=== PATIENT | male | born 1935 | race Caucasian/White ===

== ENCOUNTER 2018-03-21 13:40 | Inpatient (IN) | payer MEDICARE, BC ==
[2018-03-20 12:24] LABS: BASOPHILS # (AUTO) 0.1 X10'3 (0-0.2); BASOPHILS % (AUTO) 0.8 % (0-1); EOSINOPHILS # (AUTO) 0.2 X10'3 (0-0.9); EOSINOPHILS % (AUTO) 1.8 % (0-6); HEMATOCRIT 39.6 % (42.0-52.0); HEMOGLOBIN 13.6 g/dl (14.0-17.9); LYMPHOCYTES % (AUTO) 20.6 % (21-51); MEAN CORPUSCULAR HGB CONC 34.2 % (33.0-36.5); MEAN CORPUSCULAR VOLUME 96.5 FL (78-98); MEAN PLATELET VOLUME 7.4 FL (7.4-10.4); MONOCYTES # (AUTO) 0.7 X10'3 (0-0.9); MONOCYTES % (AUTO) 7.4 % (2-12); NEUTROPHILS # (AUTO) 6.8 X10'3 (1.8-7.7); NEUTROPHILS % (AUTO) 69.4 % (42-75); PLATELET COUNT 348 X10'3 (140-440); RED BLOOD COUNT 4.11 X10'6 (4.70-6.10); RED CELL DISTRIBUTION WIDTH 13.8 % (11.5-14.5); WHITE BLOOD COUNT 9.8 X10'3 (4.5-11.0)
[2018-03-20 12:35] LABS: PARTIAL THROMBOPLASTIN TIME 29 SECONDS (22-32); PROTHROMBIN TIME 10.6 SECONDS (9.0-12.0)
[2018-03-20 12:40] LABS: ALBUMIN 3.9 G/DL (3.4-5.0); ANION GAP 11 (8-16); BLOOD UREA NITROGEN 18 MG/DL (7-18); BUN/CREATININE RATIO 16.5 (5.4-32.0); CALCIUM 9.1 MG/DL (8.5-10.1); CHLORIDE 101 MMOL/L (99-107); CREATININE 1.09 MG/DL (0.60-1.10); GLUCOSE 89 MG/DL (70-104); POTASSIUM 4.1 MMOL/L (3.5-5.1); SODIUM 137 MMOL/L (135-145); TOTAL CARBON DIOXIDE 24.6 MMOL/L (24-32); eGFR 65 ML/MIN
[~2018-03-21] VITALS: Ht 167.6 cm; Wt 69.7 kg
[2018-03-21] VITALS (9 sets, daily range): BP systolic 130–158; BP diastolic 69–82
[2018-03-21] MEDS ORDERED: ATOR20TA PO (14:30)
[2018-03-21] MEDS ORDERED: CLOT15CR5 TOP (14:30)
[2018-03-21] MEDS ORDERED: SILD100T PO (14:30)
[2018-03-21] MEDS ORDERED: PARO10TA85 PO (14:30)
[2018-03-21] MEDS ORDERED: ASPI81TA47 PO (14:30)
[2018-03-21] MEDS ORDERED: NYSTATIN TOP (14:30)
[2018-03-21] MEDS ORDERED: TRIA1CAP2 PO (14:30)
[2018-03-21] MEDS ORDERED: FLO0.4C PO (14:30)
[2018-03-21] MEDS ORDERED: OMEP20TA23 PO (14:30)
[2018-03-21] MEDS ORDERED: LIDOcaine/PRILOcaine 5gm cream TP ONE (14:40)
[2018-03-21] MEDS ORDERED: diphenhydrAMINE 25mg capsule PO PRN (14:40)
[2018-03-21] MEDS ORDERED: LORazepam 0.5 MG tablet PO PRN (14:40)
[2018-03-21] MEDS: normal saline 1000ml 1,000 ML IV SCH (14:55)
[2018-03-21] MEDS ORDERED: iohexol 350MG/ML 100ml bottle IV ONE (17:34)
[2018-03-21] MEDS ORDERED: fentaNYL/PF 50MCG/1 ML 2ML syringe ONE (17:34)
[2018-03-21] MEDS ORDERED: LIDOcaine 1% w/EPI 1:100,000 30ml vial (MDV) ONE (17:34)
[2018-03-21] MEDS ORDERED: heparin 1,000 UNITS/NS 500ml 500 ML ONE ×2 (17:34→17:35)
[2018-03-21] MEDS ORDERED: nitroGLYCERIN-Tridil 50MG/D5W 250 ML IV ONE (17:34)
[2018-03-21] MEDS ORDERED: verapamil 2.5 mg/ml inj IV ONE (17:34)
[2018-03-21] MEDS ORDERED: midazolam 2 mg/2 ml injection ONE (17:34)
[2018-03-21] MEDS ORDERED: heparin 1,000unit/ml 10ml vial 10 ML ONE (17:35)
[2018-03-21] MEDS ORDERED: proCHLORperazine 10 MG/2 ml inj IV PRN (19:50)
[2018-03-21] MEDS ORDERED: ondansetron/PF 4mg/2ml inj IV PRN (19:50)
[2018-03-21] MEDS ORDERED: OXAZEpam 15mg capsule PO PRN (19:50)
[2018-03-21] MEDS: clotrimazole topical cream 15gm tube TP SCH (20:00)
[2018-03-21] MEDS: NYSTATIN CREAM - 30GM TUBE TP SCH (20:00)
[2018-03-21] MEDS: tamsulosin 0.4mg capsule PO SCH (20:28)
[2018-03-22] MEDS: normal saline 1000ml 1,000 ML IV SCH ×2 (00:40→03:28)
[2018-03-22 06:00] VITALS: BP 158/89
[2018-03-22] MEDS ORDERED: insulin regular, human inj. 100 UNITS in normal saline 100ml IV soln 100 ML IV SCH ×2 (07:10)
[2018-03-22] MEDS ORDERED: Cefazolin 2GM/100ML NS IVPB 100 ML IV ONE (07:10)
[2018-03-22] MEDS ORDERED: dextrose 50%-water 50ml dispensing syringe IV PRN (07:10)
[2018-03-22] MEDS ORDERED: MESSAGE TO NURSING PO ONE ×5 (07:10→10:00)
[2018-03-22] MEDS ORDERED: vancomycin/NS 1 GM ADD-VANTAGE 250 ML IV ONE (07:10)
[2018-03-22] MEDS: pantoprazole 40mg Tablet.DR PO SCH (07:19)
[2018-03-22] MEDS: atorvastatin 20mg tablet PO SCH (07:19)
[2018-03-22] MEDS: PARoxetine 10mg tablet PO SCH (07:20)
[2018-03-22] MEDS: triamterene/HCTZ 37.5/25mg tablet PO SCH (07:20)
[2018-03-22] MEDS: aspirin 81mg tablet.DR PO SCH (07:33)
[2018-03-22] MEDS: clotrimazole topical cream 15gm tube TP SCH ×2 (08:00→20:00)
[2018-03-22] MEDS: NYSTATIN CREAM - 30GM TUBE TP SCH ×2 (08:00→20:00)
[2018-03-22 08:04] LABS: BASOPHILS % (AUTO) 0.3 % (0-1); EOSINOPHILS # (AUTO) 0.3 X10'3 (0-0.9); EOSINOPHILS % (AUTO) 4.5 % (0-6); HEMATOCRIT 37.9 % (42.0-52.0); HEMOGLOBIN 12.6 g/dl (14.0-17.9); LYMPHOCYTES # (AUTO) 1.5 X10'3 (1.1-4.8); LYMPHOCYTES % (AUTO) 22.5 % (21-51); MEAN CORPUSCULAR HEMOGLOBIN 32.2 PG (27.0-31.0); MEAN CORPUSCULAR HGB CONC 33.2 % (33.0-36.5); MEAN PLATELET VOLUME 7.6 FL (7.4-10.4); MONOCYTES # (AUTO) 0.6 X10'3 (0-0.9); MONOCYTES % (AUTO) 8.9 % (2-12); NEUTROPHILS # (AUTO) 4.1 X10'3 (1.8-7.7); NEUTROPHILS % (AUTO) 63.8 % (42-75); PLATELET COUNT 319 X10'3 (140-440); RED BLOOD COUNT 3.91 X10'6 (4.70-6.10); RED CELL DISTRIBUTION WIDTH 13.8 % (11.5-14.5); WHITE BLOOD COUNT 6.5 X10'3 (4.5-11.0)
[2018-03-22 08:11] LABS: HEMOGLOBIN A1C 5.3 % (4.5-6.2)
[2018-03-22 08:15] LABS: PARTIAL THROMBOPLASTIN TIME 29 SECONDS (22-32); PROTHROMBIN TIME 10.7 SECONDS (9.0-12.0)
[2018-03-22 08:16] LABS: ALBUMIN 3.3 G/DL (3.4-5.0); ANION GAP 8 (8-16); BLOOD UREA NITROGEN 13 MG/DL (7-18); CALCIUM 8.5 MG/DL (8.5-10.1); CHLORIDE 105 MMOL/L (99-107); GLUCOSE 96 MG/DL (70-104); SODIUM 140 MMOL/L (135-145); TOTAL CARBON DIOXIDE 27.1 MMOL/L (24-32); eGFR 72 ML/MIN
[2018-03-22] MEDS ORDERED: insulin Lispro (HumaLOG) vial - multi-dose SQ SCH (09:00)
[2018-03-22 10:47] LABS: CLARITY,URINE CLEAR (Clear); COLOR,URINE YELLOW (Yellow); GLUCOSE, URINE NEGATIVE (Neg); KETONES,URINE NEGATIVE (Neg); LEUKOCYTE ESTERASE ,URINE NEGATIVE (Neg); NITRITES, URINE NEGATIVE (Neg); OCCULT BLOOD,URINE NEGATIVE (Neg); PROTEIN,URINE NEGATIVE (Neg); UROBILINOGEN,URINE 0.2 E.U/dL (0.2-1.0)
[2018-03-22 10:48] LABS: UA COLLECTION TYPE VOIDED
[2018-03-22 11:00] VITALS: BP 131/65
[2018-03-22 13:00] VITALS: BP 132/71
[2018-03-22 15:40] LABS: ABG BASE EXCESS -1.5 mmol/L (-2.0-3.0); ABG OXYGEN SATURATION 96.6 % (95-98); ABG PCO2 (T) 29.5 mmHg (35.0-48.0); ABG PH (T) 7.471 (7.350-7.450); ABG PO2 (T) 86.6 mmHg (83-108); ALLEN'S TEST Positive; FMetHb 0.2 % (0.3-1.12); FO2Hb 96.4 % (94-100); TOTAL HEMOGLOBIN 13.1 G/dl (14.0-18.0)
[2018-03-22] MEDS ORDERED: ringers solution, lacted 1,000 ML IV ONE (15:49)
[2018-03-22 19:00] VITALS: BP 134/69
[2018-03-22] MEDS: mupirocin 2% ointment 22GM NS SCH (20:00)
[2018-03-22] MEDS: tamsulosin 0.4mg capsule PO SCH (20:51)
[2018-03-22 23:00] VITALS: BP 116/65
[2018-03-23] VITALS (14 sets, daily range): BP systolic 110–166; BP diastolic 58–86
[2018-03-23] MEDS ORDERED: vancomycin/NS 1 GM ADD-VANTAGE 250 ML IV ONE (05:30)
[2018-03-23] MEDS ORDERED: ceFAZolin inj. 2,000 MG in dextrose 5%-water 100 ML IV ONE (05:30)
[2018-03-23 05:40] LABS: PROTHROMBIN TIME 10.7 SECONDS (9.0-12.0)
[2018-03-23 05:58] LABS: BASOPHILS % (AUTO) 0.3 % (0-1); EOSINOPHILS # (AUTO) 0.4 X10'3 (0-0.9); EOSINOPHILS % (AUTO) 5.1 % (0-6); HEMATOCRIT 36.9 % (42.0-52.0); HEMOGLOBIN 12.3 g/dl (14.0-17.9); LYMPHOCYTES # (AUTO) 1.8 X10'3 (1.1-4.8); LYMPHOCYTES % (AUTO) 25.6 % (21-51); MEAN CORPUSCULAR HEMOGLOBIN 32.5 PG (27.0-31.0); MEAN CORPUSCULAR HGB CONC 33.2 % (33.0-36.5); MEAN CORPUSCULAR VOLUME 97.8 FL (78-98); MONOCYTES # (AUTO) 0.7 X10'3 (0-0.9); MONOCYTES % (AUTO) 9.7 % (2-12); NEUTROPHILS # (AUTO) 4.2 X10'3 (1.8-7.7); NEUTROPHILS % (AUTO) 59.3 % (42-75); PLATELET COUNT 293 X10'3 (140-440); RED BLOOD COUNT 3.78 X10'6 (4.70-6.10); RED CELL DISTRIBUTION WIDTH 12.6 % (11.5-14.5); WHITE BLOOD COUNT 7.1 X10'3 (4.5-11.0)
[2018-03-23] MEDS ORDERED: famotidine 20mg tablet PO ONE ×2 (06:00→08:00)
[2018-03-23] MEDS ORDERED: LORazepam 2 mg/ml vial IV ONE (06:00)
[2018-03-23 06:06] LABS: ALBUMIN 3.2 G/DL (3.4-5.0); ANION GAP 9 (8-16); BLOOD UREA NITROGEN 13 MG/DL (7-18); BUN/CREATININE RATIO 12.6 (5.4-32.0); CALCIUM 9.3 MG/DL (8.5-10.1); CHLORIDE 104 MMOL/L (99-107); CREATININE 1.03 MG/DL (0.60-1.10); GLUCOSE 106 MG/DL (70-104); MAGNESIUM 1.8 MG/DL (1.5-2.4); SODIUM 138 MMOL/L (135-145); TOTAL CARBON DIOXIDE 25.2 MMOL/L (24-32); eGFR 69 ML/MIN
[2018-03-23] MEDS: pantoprazole 40mg Tablet.DR PO SCH (07:30)
[2018-03-23] MEDS ORDERED: sodium bicarbonate 1 MEQ/1 ml inj ONE (08:00)
[2018-03-23] MEDS ORDERED: methylPREDNISolone sod. succ. 500mg inj ONE (08:00)
[2018-03-23] MEDS ORDERED: heparin 10,000 units/1 ML INJ ONE (08:00)
[2018-03-23] MEDS ORDERED: albumin (human) 25% 100 ML IV solution IV ONE (08:00)
[2018-03-23] MEDS: triamterene/HCTZ 37.5/25mg tablet PO SCH (08:00)
[2018-03-23] MEDS ORDERED: heparin 1,000 units/ml 10ml inj ONE (08:00)
[2018-03-23] MEDS: atorvastatin 20mg tablet PO SCH (08:00)
[2018-03-23] MEDS: clotrimazole topical cream 15gm tube TP SCH ×2 (08:00→20:27)
[2018-03-23] MEDS ORDERED: potassium Cl 2 mEq/ml inj IV ONE (08:00)
[2018-03-23] MEDS ORDERED: calcium chloride 100 MG/1 ML inj IV ONE (08:00)
[2018-03-23] MEDS: NYSTATIN CREAM - 30GM TUBE TP SCH ×2 (08:00→20:00)
[2018-03-23] MEDS ORDERED: aminocaproic acid 250 MG/1 ML inj. ONE (08:00)
[2018-03-23] MEDS: mupirocin 2% ointment 22GM NS SCH ×3 (08:00→20:00)
[2018-03-23] MEDS ORDERED: LIDOcaine 2% (20 mg/ml) 5ml cardiac syringe ONE (08:00)
[2018-03-23] MEDS ORDERED: magnesium sulf 1 GM/2 ML ONE (08:00)
[2018-03-23] MEDS ORDERED: phenylephrine 10mg/ml inj. IV ONE (08:00)
[2018-03-23] MEDS: PARoxetine 10mg tablet PO SCH (08:26)
[2018-03-23] MEDS: aspirin 81mg tablet.DR PO SCH (08:26)
[2018-03-23] MEDS ORDERED: papaverine 30 mg/ml 2ml inj. ONE (09:00)
[2018-03-23] MEDS ORDERED: SUFENTANIL CITRATE 50 MCG/ML 2ml ampule IV ONE (11:17)
[2018-03-23] MEDS ORDERED: MIDAZolam 1mg/ml 10ml vial ONE (11:17)
[2018-03-23] MEDS ORDERED: LIDOcaine 2% (20mg/ml) 5ml vial ONE (11:20)
[2018-03-23] MEDS ORDERED: propofol inj 20 ML IV ONE (11:20)
[2018-03-23] MEDS ORDERED: 0.9 % SODIUM CHLORIDE 10 ML VIAL ONE ×2 (11:20→11:22)
[2018-03-23] MEDS ORDERED: DOPamine/D5W 400mg/250ml bag IV ONE (11:21)
[2018-03-23] MEDS ORDERED: isoflurane 100ml inhalation liquid IH ONE (11:21)
[2018-03-23] MEDS ORDERED: LIDOcaine 2% 5ml jelly ONE (11:22)
[2018-03-23 12:40] LABS: ABG BASE EXCESS 0.1 mmol/L (-2.0-3.0); ABG HCO3 21.9 mmol/L (22.0-26.0); ABG OXYGEN SATURATION 99.4 % (95-98); ABG PCO2 27.4 mmHg (35.0-45.0); ABG PH 7.521 (7.350-7.450); ABG PO2 531.6 mmHg (60.0-100.0); CL (ABG) 104 mmol/L (99-107); FCOHb 0.3 % (0.5-1.5); FMetHb 0.5 % (0.3-1.12); FO2Hb 98.6 % (94-100); GLUCOSE (ABG) 123 mg/dl (70-105); IONIZED CA (ABG) 1.13 mmol/L (1.03-1.32); K (ABG) 3.8 mmol/L (3.3-5.1); NA (ABG) 129 mmol/L (135-145); TOTAL HEMOGLOBIN 11.8 G/dl (14.0-18.0)
[2018-03-23] MEDS ORDERED: papaverine 30 mg/ml 2ml inj. IA ONE (12:51)
[2018-03-23] MEDS ORDERED: heparin 10,000 units/1 ML INJ IR ONE (12:52)
[2018-03-23 13:21] LABS: ABG BASE EXCESS -2.6 mmol/L (-2.0-3.0); ABG HCO3 21.2 mmol/L (22.0-26.0); ABG OXYGEN SATURATION 99.6 % (95-98); ABG PCO2 33.9 mmHg (35.0-45.0); ABG PH 7.415 (7.350-7.450); ABG PO2 493.9 mmHg (60.0-100.0); CL (ABG) 104 mmol/L (99-107); FMetHb 0.4 % (0.3-1.12); FO2Hb 99.2 % (94-100); GLUCOSE (ABG) 137 mg/dl (70-105); IONIZED CA (ABG) 1.16 mmol/L (1.03-1.32); K (ABG) 3.8 mmol/L (3.3-5.1); NA (ABG) 132 mmol/L (135-145); TOTAL HEMOGLOBIN 12.1 G/dl (14.0-18.0)
[2018-03-23] MEDS ORDERED: fentaNYL/PF 50MCG/1 ML 2ML syringe IV PRN (13:40)
[2018-03-23] MEDS ORDERED: midazolam 2 mg/2 ml injection IV PRN (13:40)
[2018-03-23 13:50] LABS: ABG BASE EXCESS 0.4 mmol/L (-2.0-3.0); ABG HCO3 23.4 mmol/L (22.0-26.0); ABG OXYGEN SATURATION 99.3 % (95-98); ABG PCO2 31.6 mmHg (35.0-45.0); ABG PH 7.488 (7.350-7.450); ABG PO2 575.3 mmHg (60.0-100.0); CL (ABG) 102 mmol/L (99-107); FCOHb 0.3 % (0.5-1.5); FMetHb 0.3 % (0.3-1.12); FO2Hb 98.7 % (94-100); GLUCOSE (ABG) 122 mg/dl (70-105); IONIZED CA (ABG) 1.03 mmol/L (1.03-1.32); K (ABG) 4.7 mmol/L (3.3-5.1); NA (ABG) 130 mmol/L (135-145); TOTAL HEMOGLOBIN 9.4 G/dl (14.0-18.0)
[2018-03-23 14:05] LABS: ABG BASE EXCESS VENOUS -0.4 mmol/L; ABG HCO3 VENOUS 23.9 mmol/L; ABG PO2 VENOUS 48.3 mmHg; CL (ABG) 102 mmol/L (99-107); FCOHb VENOUS 0.3 %; FHHb VENOUS 16.9 %; FMetHb VENOUS 0.4 %; FO2Hb VENOUS 82.4 %; GLUCOSE (ABG) 119 mg/dl (70-105); IONIZED CA (ABG) 1.06 mmol/L (1.03-1.32); K (ABG) 4.6 mmol/L (3.3-5.1); NA (ABG) 131 mmol/L (135-145); TOTAL HEMOGLOBIN 9.7 G/dl (14.0-18.0)
[2018-03-23 14:46] LABS: ABG HCO3 23.4 mmol/L (22.0-26.0); ABG OXYGEN SATURATION 99.1 % (95-98); ABG PCO2 37.6 mmHg (35.0-45.0); ABG PH 7.412 (7.350-7.450); ABG PO2 313.6 mmHg (60.0-100.0); CL (ABG) 104 mmol/L (99-107); FCOHb 0.3 % (0.5-1.5); FMetHb 0.4 % (0.3-1.12); FO2Hb 98.4 % (94-100); GLUCOSE (ABG) 120 mg/dl (70-105); K (ABG) 4.9 mmol/L (3.3-5.1); NA (ABG) 131 mmol/L (135-145); TOTAL HEMOGLOBIN 9.7 G/dl (14.0-18.0)
[2018-03-23 15:06] LABS: ABG BASE EXCESS 2.5 mmol/L (-2.0-3.0); ABG HCO3 26.6 mmol/L (22.0-26.0); ABG PCO2 39.4 mmHg (35.0-45.0); ABG PH 7.448 (7.350-7.450); ABG PO2 303.6 mmHg (60.0-100.0); CL (ABG) 105 mmol/L (99-107); FCOHb 0.3 % (0.5-1.5); FMetHb 0.6 % (0.3-1.12); FO2Hb 98.1 % (94-100); GLUCOSE (ABG) 127 mg/dl (70-105); K (ABG) 4.3 mmol/L (3.3-5.1); NA (ABG) 132 mmol/L (135-145); TOTAL HEMOGLOBIN 8.7 G/dl (14.0-18.0)
[2018-03-23 15:41] LABS: ABG BASE EXCESS 0.6 mmol/L (-2.0-3.0); ABG HCO3 25.3 mmol/L (22.0-26.0); ABG PCO2 40.9 mmHg (35.0-45.0); ABG PH 7.409 (7.350-7.450); ABG PO2 357.2 mmHg (60.0-100.0); CL (ABG) 106 mmol/L (99-107); FCOHb 0.3 % (0.5-1.5); FMetHb 0.5 % (0.3-1.12); FO2Hb 98.2 % (94-100); GLUCOSE (ABG) 137 mg/dl (70-105); IONIZED CA (ABG) 1.27 mmol/L (1.03-1.32); NA (ABG) 133 mmol/L (135-145); TOTAL HEMOGLOBIN 9.2 G/dl (14.0-18.0)
[2018-03-23] MEDS ORDERED: rocuronium 10mg/ml inj IV ONE ×3 (16:05→16:32)
[2018-03-23] MEDS ORDERED: nitroGLYCERIN-Tridil 50MG/D5W 250 ML IV PRN (16:26)
[2018-03-23] MEDS ORDERED: DOPamine 400mg/D5W 250ml 250 ML IV PRN (16:26)
[2018-03-23] MEDS ORDERED: niCARDipine/sod cl 20mg/200ml 200 ML IV PRN (16:26)
[2018-03-23] MEDS ORDERED: metoclopramide 5 mg/ml inj IV PRN (16:30)
[2018-03-23] MEDS ORDERED: morphine 4 MG/ML inj SYRINge IV PRN (16:30)
[2018-03-23] MEDS ORDERED: sodium phosphate inj. 15 MMOL in dextrose 5%-water 150 ML IV PRN (16:30)
[2018-03-23] MEDS ORDERED: magnesium 4gm in 100ml NS 100 ML IV PRN (16:30)
[2018-03-23] MEDS ORDERED: sodium phosphate inj. 30 MMOL in dextrose 5%-water 250 ML IV PRN (16:30)
[2018-03-23] MEDS ORDERED: Neutra Phos packet PO PRN (16:30)
[2018-03-23] MEDS ORDERED: magnesium hydroxide 30ml (MOM) UD suspension PO PRN (16:30)
[2018-03-23] MEDS ORDERED: albumin (Human) 5% 250ml 250 ML IV PRN (16:30)
[2018-03-23] MEDS ORDERED: potassium Cl 20mEq/100mL bag 100 ML IV PRN ×3 (16:30)
[2018-03-23] MEDS: insulin regular, human inj. 100 UNITS in normal saline 100ml IV soln 100 ML IV SCH ×4 (16:30→19:15)
[2018-03-23] MEDS ORDERED: dextrose 50%-water 50ml dispensing syringe IV PRN (16:30)
[2018-03-23] MEDS ORDERED: acetaminophen 325mg tablet PO PRN (16:30)
[2018-03-23] MEDS ORDERED: normal saline 250ml IV soln 250 ML IV PRN (16:30)
[2018-03-23 17:00] LABS: ABG BASE EXCESS -1.4 mmol/L (-2.0-3.0); ABG HCO3 24.7 mmol/L (22.0-26.0); ABG OXYGEN SATURATION 98.5 % (95-98); ABG PCO2 (T) 46.8 mmHg (35.0-48.0); ABG PH (T) 7.339 (7.350-7.450); ABG PO2 (T) 159.6 mmHg (83-108); FCOHb 0.3 % (0.5-1.5); FMetHb 0.1 % (0.3-1.12); FO2Hb 98.1 % (94-100); PATIENT TEMPERATURE 36.8; PEEP 5 cm H2O; RESPIRATORY RATE 12 b/min; TIDAL VOLUME 500 mL; TOTAL HEMOGLOBIN 11.5 G/dl (14.0-18.0)
[2018-03-23 17:35] LABS: BASOPHILS % (AUTO) 0 % (0-1); EOSINOPHILS # (AUTO) 0.3 X10'3 (0-0.9); EOSINOPHILS % (AUTO) 1.7 % (0-6); HEMATOCRIT 30.7 % (42.0-52.0); HEMOGLOBIN 10.6 g/dl (14.0-17.9); LYMPHOCYTES # (AUTO) 0.9 X10'3 (1.1-4.8); LYMPHOCYTES % (AUTO) 5.8 % (21-51); MEAN CORPUSCULAR HEMOGLOBIN 33.1 PG (27.0-31.0); MEAN CORPUSCULAR HGB CONC 34.5 % (33.0-36.5); MEAN CORPUSCULAR VOLUME 96.1 FL (78-98); MEAN PLATELET VOLUME 7.4 FL (7.4-10.4); MONOCYTES # (AUTO) 0.5 X10'3 (0-0.9); MONOCYTES % (AUTO) 3.2 % (2-12); NEUTROPHILS # (AUTO) 13.8 X10'3 (1.8-7.7); NEUTROPHILS % (AUTO) 89.3 % (42-75); PLATELET COUNT 188 X10'3 (140-440); RED CELL DISTRIBUTION WIDTH 13.4 % (11.5-14.5); WHITE BLOOD COUNT 15.4 X10'3 (4.5-11.0)
[2018-03-23] MEDS: insulin Lispro (HumaLOG) vial - multi-dose SQ SCH (17:36)
[2018-03-23] MEDS: sodium chloride 0.45% 1,000 ML IV SCH (17:36)
[2018-03-23 17:46] LABS: INR 1.2 INR; PARTIAL THROMBOPLASTIN TIME 28 SECONDS (22-32); PROTHROMBIN TIME 11.9 SECONDS (9.0-12.0)
[2018-03-23 17:51] LABS: ALANINE AMINOTRANSFERASE 21 U/L (12-78); ALBUMIN 2.9 G/DL (3.4-5.0); ALBUMIN/GLOBULIN RATIO 1.3 (1.1-1.5); ALKALINE PHOSPHATASE 40 IU/L (46-116); ANION GAP 8 (8-16); BILIRUBIN,TOTAL 0.5 MG/DL (0.1-1.0); BLOOD UREA NITROGEN 11 MG/DL (7-18); BUN/CREATININE RATIO 13.3 (5.4-32.0); CALCIUM 8.4 MG/DL (8.5-10.1); CHLORIDE 106 MMOL/L (99-107); CREATININE 0.83 MG/DL (0.60-1.10); GLUCOSE 162 MG/DL (70-104); MAGNESIUM 3.1 MG/DL (1.5-2.4); SODIUM 140 MMOL/L (135-145); TOTAL CARBON DIOXIDE 26.4 MMOL/L (24-32); TOTAL PROTEIN 5.2 G/DL (6.4-8.2); eGFR 89 ML/MIN
[2018-03-23 17:52] LABS: ASPARTATE AMINO TRANSFERASE 58 U/L (10-37)
[2018-03-23] MEDS: morphine 4 MG/ML inj SYRINge IV PRN ×4 (18:31→23:53)
[2018-03-23] MEDS: docusate sod 100mg capsule PO SCH (20:00)
[2018-03-23] MEDS: vancomycin/NS 1 GM ADD-VANTAGE 250 ML IV SCH (20:25)
[2018-03-23] MEDS: mupirocin 2% nasal ointment 1gm UD NS SCH (20:25)
[2018-03-23] MEDS: tamsulosin 0.4mg capsule PO SCH (20:27)
[2018-03-23 21:45] LABS: ABG BASE EXCESS -3.4 mmol/L (-2.0-3.0); ABG HCO3 21.3 mmol/L (22.0-26.0); ABG PCO2 (T) 37.2 mmHg (35.0-48.0); ABG PH (T) 7.376 (7.350-7.450); ABG PO2 (T) 65.5 mmHg (83-108); FCOHb 0.3 % (0.5-1.5); FMetHb 0.1 % (0.3-1.12); FO2Hb 91.6 % (94-100); MINUTE VOLUME 9 L/min; PATIENT TEMPERATURE 36.8; PEEP 5 cm H2O; RESPIRATORY RATE 0 b/min; RESPIRATORY RATE (OBSERVED) 16 b/min; TIDAL VOLUME 735 mL; TOTAL HEMOGLOBIN 11.6 G/dl (14.0-18.0)
[2018-03-23] MEDS: ceFAZolin 1GM/D5W- ADD-VANTAGE 50 ML IV SCH (23:52)
[2018-03-24] VITALS (24 sets, daily range): BP systolic 98–152; BP diastolic 49–75
[2018-03-24] MEDS: HYDROcodone/acetaminophen 10/325mg tab PO PRN ×3 (00:50→17:20)
[2018-03-24 03:22] LABS: BASOPHILS # (AUTO) 0.2 X10'3 (0-0.2); BASOPHILS % (AUTO) 1.4 % (0-1); EOSINOPHILS % (AUTO) 0 % (0-6); HEMATOCRIT 29.7 % (42.0-52.0); LYMPHOCYTES # (AUTO) 0.4 X10'3 (1.1-4.8); LYMPHOCYTES % (AUTO) 2.9 % (21-51); MEAN CORPUSCULAR HEMOGLOBIN 32.8 PG (27.0-31.0); MEAN CORPUSCULAR HGB CONC 33.8 % (33.0-36.5); MEAN CORPUSCULAR VOLUME 96.9 FL (78-98); MEAN PLATELET VOLUME 7.6 FL (7.4-10.4); MONOCYTES # (AUTO) 0.7 X10'3 (0-0.9); MONOCYTES % (AUTO) 5.2 % (2-12); NEUTROPHILS # (AUTO) 12.1 X10'3 (1.8-7.7); NEUTROPHILS % (AUTO) 90.5 % (42-75); PLATELET COUNT 170 X10'3 (140-440); RED BLOOD COUNT 3.06 X10'6 (4.70-6.10); RED CELL DISTRIBUTION WIDTH 13.6 % (11.5-14.5); WHITE BLOOD COUNT 13.4 X10'3 (4.5-11.0)
[2018-03-24 04:01] LABS: PARTIAL THROMBOPLASTIN TIME 28 SECONDS (22-32); PROTHROMBIN TIME 10.7 SECONDS (9.0-12.0)
[2018-03-24 04:04] LABS: ALANINE AMINOTRANSFERASE 23 U/L (12-78); ALBUMIN 3.3 G/DL (3.4-5.0); ALBUMIN/GLOBULIN RATIO 1.4 (1.1-1.5); ALKALINE PHOSPHATASE 36 IU/L (46-116); ANION GAP 9 (8-16); ASPARTATE AMINO TRANSFERASE 60 U/L (10-37); BILIRUBIN,TOTAL 0.4 MG/DL (0.1-1.0); BLOOD UREA NITROGEN 14 MG/DL (7-18); BUN/CREATININE RATIO 12.4 (5.4-32.0); CALCIUM 8.5 MG/DL (8.5-10.1); CHLORIDE 107 MMOL/L (99-107); CREATININE 1.13 MG/DL (0.60-1.10); GLUCOSE 86 MG/DL (70-104); MAGNESIUM 2.7 MG/DL (1.5-2.4); PHOSPHORUS 2.3 MG/DL (2.3-4.5); POTASSIUM 4.6 MMOL/L (3.5-5.1); SODIUM 142 MMOL/L (135-145); TOTAL CARBON DIOXIDE 26.1 MMOL/L (24-32); TOTAL PROTEIN 5.7 G/DL (6.4-8.2); eGFR 62 ML/MIN
[2018-03-24] MEDS: ondansetron/PF 4mg/2ml inj IV PRN ×2 (04:10→10:03)
[2018-03-24] MEDS ORDERED: atorvastatin 10mg tablet PO SCH (08:00)
[2018-03-24] MEDS ORDERED: aspirin 325mg tablet, delayed-release (Ecotrin) PO SCH (08:00)
[2018-03-24] MEDS ORDERED: metoprolol tartrate 12.5mg (1/2 tablet) PO SCH (08:00)
[2018-03-24] MEDS ORDERED: clopidogrel 300mg tablet PO ONE (08:10)
[2018-03-24] MEDS ORDERED: ketorolac tromethamine 15mg/ml inj. IV ONE (08:30)
[2018-03-24] MEDS: clotrimazole topical cream 15gm tube TP SCH ×2 (09:14→19:58)
[2018-03-24] MEDS: NYSTATIN CREAM - 30GM TUBE TP SCH ×2 (09:14→19:57)
[2018-03-24] MEDS: PARoxetine 10mg tablet PO SCH (09:16)
[2018-03-24] MEDS: vancomycin/NS 1 GM ADD-VANTAGE 250 ML IV SCH ×2 (09:16→19:56)
[2018-03-24] MEDS: ceFAZolin 1GM/D5W- ADD-VANTAGE 50 ML IV SCH ×2 (09:16→16:14)
[2018-03-24] MEDS: docusate sod 100mg capsule PO SCH ×2 (09:17→19:57)
[2018-03-24] MEDS: pantoprazole 40mg Tablet.DR PO SCH (09:17)
[2018-03-24] MEDS: insulin Lispro (HumaLOG) vial - multi-dose SQ SCH ×3 (09:26→16:12)
[2018-03-24] MEDS: mupirocin 2% nasal ointment 1gm UD NS SCH ×2 (10:03→19:56)
[2018-03-24] MEDS: ketorolac tromethamine 15mg/ml inj. IV SCH ×2 (13:59→19:56)
[2018-03-24] MEDS ORDERED: mineral oil/petrolatum ophthal oint EACHEYE SCH (14:00)
[2018-03-24] MEDS: lactobacillus rhamnosus 10,000 MMU CELLS/CAPSULE PO SCH (19:56)
[2018-03-24] MEDS: metoprolol tartrate 25mg tablet PO SCH (19:57)
[2018-03-24] MEDS: tamsulosin 0.4mg capsule PO SCH (20:08)
[2018-03-25] VITALS (24 sets, daily range): BP systolic 107–158; BP diastolic 63–91
[2018-03-25] MEDS: ceFAZolin 1GM/D5W- ADD-VANTAGE 50 ML IV SCH ×2 (00:02→08:14)
[2018-03-25] MEDS: ketorolac tromethamine 15mg/ml inj. IV SCH ×3 (01:31→14:48)
[2018-03-25 04:19] LABS: ALBUMIN 2.9 G/DL (3.4-5.0); ANION GAP 5 (8-16); BLOOD UREA NITROGEN 22 MG/DL (7-18); CHLORIDE 102 MMOL/L (99-107); CREATININE 1.16 MG/DL (0.60-1.10); GLUCOSE 138 MG/DL (70-104); MAGNESIUM 2.5 MG/DL (1.5-2.4); PHOSPHORUS 4.1 MG/DL (2.3-4.5); POTASSIUM 5.6 MMOL/L (3.5-5.1); SODIUM 133 MMOL/L (135-145); TOTAL CARBON DIOXIDE 26.5 MMOL/L (24-32); eGFR 60 ML/MIN
[2018-03-25 04:22] LABS: BASOPHILS % (AUTO) 0 % (0-1); EOSINOPHILS % (AUTO) 0 % (0-6); HEMATOCRIT 26.4 % (42.0-52.0); HEMOGLOBIN 8.9 g/dl (14.0-17.9); LYMPHOCYTES # (AUTO) 0.8 X10'3 (1.1-4.8); LYMPHOCYTES % (AUTO) 4.3 % (21-51); MEAN CORPUSCULAR HEMOGLOBIN 32.9 PG (27.0-31.0); MEAN CORPUSCULAR HGB CONC 33.8 % (33.0-36.5); MEAN CORPUSCULAR VOLUME 97.4 FL (78-98); MONOCYTES % (AUTO) 5.6 % (2-12); NEUTROPHILS # (AUTO) 16.7 X10'3 (1.8-7.7); NEUTROPHILS % (AUTO) 90.1 % (42-75); PLATELET COUNT 143 X10'3 (140-440); RED BLOOD COUNT 2.71 X10'6 (4.70-6.10); RED CELL DISTRIBUTION WIDTH 14.2 % (11.5-14.5); WHITE BLOOD COUNT 18.6 X10'3 (4.5-11.0)
[2018-03-25] MEDS: clotrimazole topical cream 15gm tube TP SCH ×2 (08:00→19:18)
[2018-03-25] MEDS: NYSTATIN CREAM - 30GM TUBE TP SCH ×2 (08:00→19:18)
[2018-03-25] MEDS: pantoprazole 40mg Tablet.DR PO SCH (08:13)
[2018-03-25] MEDS: aspirin 81mg tab.chew PO SCH (08:13)
[2018-03-25] MEDS: docusate sod 100mg capsule PO SCH ×2 (08:13→19:17)
[2018-03-25] MEDS: PARoxetine 10mg tablet PO SCH (08:13)
[2018-03-25] MEDS: clopidogrel 75mg tablet PO SCH (08:13)
[2018-03-25] MEDS: lactobacillus rhamnosus 10,000 MMU CELLS/CAPSULE PO SCH ×2 (08:13→19:17)
[2018-03-25] MEDS: atorvastatin 10mg tablet PO SCH (08:13)
[2018-03-25] MEDS: metoprolol tartrate 25mg tablet PO SCH ×2 (08:18→19:17)
[2018-03-25] MEDS: mupirocin 2% nasal ointment 1gm UD NS SCH (08:18)
[2018-03-25] MEDS: insulin Lispro (HumaLOG) vial - multi-dose SQ SCH ×2 (09:00→13:00)
[2018-03-25] MEDS ORDERED: furosemide 20 MG/2 ML vial IV ONE (09:30)
[2018-03-25] MEDS: sodium chloride 0.45% 1,000 ML IV SCH (16:26)
[2018-03-25] MEDS: tamsulosin 0.4mg capsule PO SCH (20:03)
[2018-03-25] MEDS: HYDROcodone/acetaminophen 10/325mg tab PO PRN (20:04)
[2018-03-26] VITALS (18 sets, daily range): BP systolic 108–159; BP diastolic 57–93
[2018-03-26] MEDS: HYDROcodone/acetaminophen 10/325mg tab PO PRN ×4 (02:57→23:34)
[2018-03-26 05:15] LABS: BASOPHILS % (AUTO) 0.1 % (0-1); EOSINOPHILS % (AUTO) 0.1 % (0-6); HEMATOCRIT 27.5 % (42.0-52.0); HEMOGLOBIN 9.3 g/dl (14.0-17.9); LYMPHOCYTES # (AUTO) 1.1 X10'3 (1.1-4.8); LYMPHOCYTES % (AUTO) 7.9 % (21-51); MEAN CORPUSCULAR HEMOGLOBIN 32.8 PG (27.0-31.0); MEAN CORPUSCULAR HGB CONC 33.7 % (33.0-36.5); MEAN CORPUSCULAR VOLUME 97.1 FL (78-98); MEAN PLATELET VOLUME 8.4 FL (7.4-10.4); MONOCYTES # (AUTO) 1.1 X10'3 (0-0.9); MONOCYTES % (AUTO) 7.7 % (2-12); NEUTROPHILS # (AUTO) 12.1 X10'3 (1.8-7.7); NEUTROPHILS % (AUTO) 84.2 % (42-75); PLATELET COUNT 156 X10'3 (140-440); RED BLOOD COUNT 2.84 X10'6 (4.70-6.10); RED CELL DISTRIBUTION WIDTH 13.3 % (11.5-14.5); WHITE BLOOD COUNT 14.4 X10'3 (4.5-11.0)
[2018-03-26 05:40] LABS: ALBUMIN 2.9 G/DL (3.4-5.0); ANION GAP 4 (8-16); BLOOD UREA NITROGEN 26 MG/DL (7-18); BUN/CREATININE RATIO 24.5 (5.4-32.0); CHLORIDE 100 MMOL/L (99-107); CREATININE 1.06 MG/DL (0.60-1.10); GLUCOSE 120 MG/DL (70-104); MAGNESIUM 2.3 MG/DL (1.5-2.4); PHOSPHORUS 2.7 MG/DL (2.3-4.5); POTASSIUM 4.9 MMOL/L (3.5-5.1); SODIUM 133 MMOL/L (135-145); TOTAL CARBON DIOXIDE 28.9 MMOL/L (24-32); eGFR 67 ML/MIN
[2018-03-26] MEDS: magnesium/D5W IVPB 100 ML IV PRN ×2 (06:30→07:24)
[2018-03-26] MEDS ORDERED: magnesium 2GM in 50ml NS 50 ML IV PRN (06:45)
[2018-03-26] MEDS ORDERED: magnesium Cl slow-release 64mg tablet PO PRN (06:45)
[2018-03-26] MEDS ORDERED: potassium Cl 40MEQ/NS 500ml 500 ML IV PRN ×2 (06:45)
[2018-03-26] MEDS ORDERED: potassium Cl 20 mEq SR tablet PO PRN ×2 (06:45)
[2018-03-26] MEDS ORDERED: magnesium 4gm in 100ml NS 100 ML IV PRN (06:45)
[2018-03-26] MEDS ORDERED: magnesium citrate 296ml oral solution PO ONE (06:50)
[2018-03-26] MEDS ORDERED: magnesium Cl slow-release 64mg tablet PO SCH (08:00)
[2018-03-26] MEDS ORDERED: potassium Cl 20 mEq SR tablet PO SCH (08:00)
[2018-03-26] MEDS: NYSTATIN CREAM - 30GM TUBE TP SCH ×2 (08:00→20:00)
[2018-03-26] MEDS: clotrimazole topical cream 15gm tube TP SCH ×2 (08:00→20:00)
[2018-03-26] MEDS: pantoprazole 40mg Tablet.DR PO SCH (08:17)
[2018-03-26] MEDS: lactobacillus rhamnosus 10,000 MMU CELLS/CAPSULE PO SCH ×2 (08:17→21:47)
[2018-03-26] MEDS: triamterene/HCTZ 37.5/25mg tablet PO SCH (08:17)
[2018-03-26] MEDS: PARoxetine 10mg tablet PO SCH (08:17)
[2018-03-26] MEDS: clopidogrel 75mg tablet PO SCH (08:17)
[2018-03-26] MEDS: aspirin 81mg tab.chew PO SCH (08:18)
[2018-03-26] MEDS: atorvastatin 10mg tablet PO SCH (08:18)
[2018-03-26] MEDS: K and/or MAG REPLACEMENT MC SCH (08:18)
[2018-03-26] MEDS: metoprolol tartrate 25mg tablet PO SCH ×2 (08:18→21:47)
[2018-03-26] MEDS: tamsulosin 0.4mg capsule PO SCH (21:47)
[2018-03-27 03:00] VITALS: BP 92/62
[2018-03-27 05:21] LABS: BASOPHILS % (AUTO) 0.1 % (0-1); EOSINOPHILS # (AUTO) 0.1 X10'3 (0-0.9); EOSINOPHILS % (AUTO) 0.7 % (0-6); HEMATOCRIT 28.3 % (42.0-52.0); HEMOGLOBIN 9.6 g/dl (14.0-17.9); LYMPHOCYTES # (AUTO) 1.3 X10'3 (1.1-4.8); MEAN CORPUSCULAR HEMOGLOBIN 32.7 PG (27.0-31.0); MEAN CORPUSCULAR HGB CONC 34.1 % (33.0-36.5); MEAN PLATELET VOLUME 8.1 FL (7.4-10.4); MONOCYTES # (AUTO) 0.9 X10'3 (0-0.9); MONOCYTES % (AUTO) 8.4 % (2-12); NEUTROPHILS # (AUTO) 8.8 X10'3 (1.8-7.7); NEUTROPHILS % (AUTO) 78.8 % (42-75); PLATELET COUNT 193 X10'3 (140-440); RED BLOOD COUNT 2.95 X10'6 (4.70-6.10); RED CELL DISTRIBUTION WIDTH 13.7 % (11.5-14.5); WHITE BLOOD COUNT 11.1 X10'3 (4.5-11.0)
[2018-03-27 05:25] LABS: ALBUMIN 2.9 G/DL (3.4-5.0); ANION GAP 5 (8-16); BLOOD UREA NITROGEN 17 MG/DL (7-18); BUN/CREATININE RATIO 17.2 (5.4-32.0); CALCIUM 8.5 MG/DL (8.5-10.1); CHLORIDE 101 MMOL/L (99-107); CREATININE 0.99 MG/DL (0.60-1.10); GLUCOSE 110 MG/DL (70-104); MAGNESIUM 2.6 MG/DL (1.5-2.4); POTASSIUM 4.2 MMOL/L (3.5-5.1); SODIUM 136 MMOL/L (135-145); TOTAL CARBON DIOXIDE 30.1 MMOL/L (24-32); eGFR 72 ML/MIN
[2018-03-27] MEDS: HYDROcodone/acetaminophen 10/325mg tab PO PRN (05:44)
[2018-03-27 06:00] VITALS: BP_SYST 128; BP_SYST 144; BP_DIAS 82; BP_DIAS 84
[2018-03-27] MEDS: clotrimazole topical cream 15gm tube TP SCH (08:00)
[2018-03-27] MEDS: NYSTATIN CREAM - 30GM TUBE TP SCH (08:00)
[2018-03-27] MEDS: K and/or MAG REPLACEMENT MC SCH (08:00)
[2018-03-27] MEDS ORDERED: HYDR-3972 PO (08:32)
[2018-03-27] MEDS ORDERED: CLOP75TA35 PO (08:32)
[2018-03-27] MEDS ORDERED: METO25TA6 PO (08:32)
[2018-03-27] MEDS: pantoprazole 40mg Tablet.DR PO SCH (09:14)
[2018-03-27] MEDS: metoprolol tartrate 25mg tablet PO SCH (09:14)
[2018-03-27] MEDS: aspirin 81mg tab.chew PO SCH (09:14)
[2018-03-27] MEDS: atorvastatin 10mg tablet PO SCH (09:14)
[2018-03-27] MEDS: lactobacillus rhamnosus 10,000 MMU CELLS/CAPSULE PO SCH (09:14)
[2018-03-27] MEDS: triamterene/HCTZ 37.5/25mg tablet PO SCH (09:15)
[2018-03-27] MEDS: clopidogrel 75mg tablet PO SCH (09:15)
[2018-03-27] MEDS: PARoxetine 10mg tablet PO SCH (09:15)
[2018-03-27] MEDS: tamsulosin 0.4mg capsule PO SCH (09:15)
[2018-03-27 11:00] VITALS: BP 118/67
== END 2018-03-27 12:30 | disposition home health service (06) | DRG 229 ==
LOC: SSTAY O 13:40 → PCU 3S 19:29 → CICU 2S 03-23 15:01 → PCU 3S 03-26 14:50
PROVIDERS: ADMIT Internal Medicine Interventional Cardiology; ATTEND Internal Medicine Interventional Cardiology
PROC: 4A023N7 Measurement of Cardiac Sampling and Pressure, Left Heart, Percutaneous Approach (ICD-10-PCS; 2018-03-21)
PROC: B2111ZZ Fluoroscopy of Multiple Coronary Arteries using Low Osmolar Contrast (ICD-10-PCS; 2018-03-21)
PROC: B2151ZZ Fluoroscopy of Left Heart using Low Osmolar Contrast (ICD-10-PCS; 2018-03-21)
PROC: 02100Z9 Bypass Coronary Artery, One Artery from Left Internal Mammary, Open Approach (ICD-10-PCS; 2018-03-23)
PROC: 021109W Bypass Coronary Artery, Two Arteries from Aorta with Autologous Venous Tissue, Open Approach (ICD-10-PCS; 2018-03-23)
PROC: 06BP4ZZ Excision of Right Saphenous Vein, Percutaneous Endoscopic Approach (ICD-10-PCS; 2018-03-23)
PROC: 05HY33Z Insertion of Infusion Device into Upper Vein, Percutaneous Approach (ICD-10-PCS; 2018-03-23)
PROC: B543ZZA Ultrasonography of Right Jugular Veins, Guidance (ICD-10-PCS; 2018-03-23)
PROC: 5A1221Z Performance of Cardiac Output, Continuous (ICD-10-PCS; 2018-03-23)
PROC: B24BZZ4 Ultrasonography of Heart with Aorta, Transesophageal (ICD-10-PCS; 2018-03-23)
PROC: 02C00ZZ Extirpation of Matter from Coronary Artery, One Artery, Open Approach (ICD-10-PCS; principal; 2018-03-23 11:21)
DX: I25.110 Atherosclerotic heart disease of native coronary artery with unstable angina pectoris (principal); I10 Essential (primary) hypertension; E78.5 Hyperlipidemia, unspecified; K21.9 Gastro-esophageal reflux disease without esophagitis; N40.0 Benign prostatic hyperplasia without lower urinary tract symptoms; E78.00 Pure hypercholesterolemia, unspecified; F41.1 Generalized anxiety disorder; F17.290 Nicotine dependence, other tobacco product, uncomplicated; I25.2 Old myocardial infarction; Z79.82 Long term (current) use of aspirin; Z79.899 Other long term (current) drug therapy
CPT/HCPCS: 0232T; 93312; 93325; 93458; 36415; 36600; 71045; 71046; 80048; 80053; 81003; 82330; 82435; 82803; 82947; 82948; 83036; 83735; 84100; 84132; 84295; 85018; 85025; 85384; 85610; 85730; 86885; 86900; 86901; 86920; 87070; 88300; 93005; 93880; 93971; 94002; 94010; 94150; 94667; 94668; 94760; 97110; 97116; 97162; 97530; 99152; A4620; A6213; A6222; A6255; A6257; A6258; A6402; A6449; A7000; A7048; C1751; C1769; J0690; J1265; J1644; J1815; J1885; J1940; J2001; J2060; J2150; J2250; J2270; J2370; J2405; J2440; J2704; J2930; J3010; J3370; J3475; J3480; J3490; J7030; J7060; J7120; P9045; P9047; Q0163; Q9967